=== PATIENT | male | born 1960 | race Caucasian/White ===

== ENCOUNTER 2016-08-11 10:14 | Outpatient (CLI) | payer MEDICARE, OTHER | END 2016-08-11 10:15 | disposition home or self-care (01) | DX: E11.65 Type 2 diabetes mellitus with hyperglycemia (principal) ==

== ENCOUNTER 2016-09-23 13:49 | Day surgery (SDC) | payer MEDICARE, OTHER ==
[2016-09-23] MEDS ORDERED: LACTATED RINGERS 1,000 ML IV ONE (13:59)
[2016-09-23] MEDS ORDERED: MIDAZOLAM 2 MG/2 ML VIAL IVP ONE (16:00)
[2016-09-23] MEDS ORDERED: LIDOCAINE-MPF 2% 5 ML VIAL IM ONE (16:00)
[2016-09-23] MEDS ORDERED: PROPOFOL 200 MG/20 ML VIAL IVP ONE (16:00)
== END 2016-09-23 13:50 | disposition home or self-care (01) ==
PROC: 0D5L8ZZ Destruction of Transverse Colon, Via Natural or Artificial Opening Endoscopic (ICD-10-PCS; 2016-09-23)
PROC: 0DBE8ZX Excision of Large Intestine, Via Natural or Artificial Opening Endoscopic, Diagnostic (ICD-10-PCS; principal; 2016-09-23 15:00)
DX: K62.5 Hemorrhage of anus and rectum (principal); D12.3 Benign neoplasm of transverse colon; D12.6 Benign neoplasm of colon, unspecified; I25.10 Atherosclerotic heart disease of native coronary artery without angina pectoris; F17.290 Nicotine dependence, other tobacco product, uncomplicated; I10 Essential (primary) hypertension; E66.9 Obesity, unspecified; E11.9 Type 2 diabetes mellitus without complications; G89.29 Other chronic pain; M54.9 Dorsalgia, unspecified; Z68.30 Body mass index [BMI] 30.0-30.9, adult; Z79.4 Long term (current) use of insulin; Z79.82 Long term (current) use of aspirin; Z88.0 Allergy status to penicillin; Z95.1 Presence of aortocoronary bypass graft
CPT/HCPCS: 45385; 45388; 88305; J7120

== ENCOUNTER 2016-09-25 13:16 | Outpatient (CLI) | payer MEDICARE, OTHER | END 2016-09-25 13:17 | disposition home or self-care (01) | DX: E11.65 Type 2 diabetes mellitus with hyperglycemia (principal) ==

== ENCOUNTER 2016-11-17 10:34 | Outpatient (CLI) | payer MEDICARE, OTHER | END 2016-11-17 10:35 | disposition home or self-care (01) | DX: E11.65 Type 2 diabetes mellitus with hyperglycemia (principal) ==

== ENCOUNTER 2016-12-30 11:01 | Outpatient (CLI) | payer MEDICARE, OTHER ==
[2016-12-30 20:03] LABS: HEMOGLOBIN A1C 1.28 g/dL
== END 2016-12-30 11:02 | disposition home or self-care (01) ==
LOC: LAB.F 11:01
PROVIDERS: ATTEND Internal Medicine
DX: E11.65 Type 2 diabetes mellitus with hyperglycemia (principal)
CPT/HCPCS: 36415; 83036

== ENCOUNTER 2017-02-18 14:43 | Outpatient (CLI) | payer MEDICARE, OTHER ==
[2017-02-18 18:40] LABS: HEMOGLOBIN A1C 1.25 g/dL
== END 2017-02-18 14:44 | disposition home or self-care (01) ==
LOC: LAB.F 14:43
PROVIDERS: ATTEND Internal Medicine
DX: I25.9 Chronic ischemic heart disease, unspecified (principal); E11.65 Type 2 diabetes mellitus with hyperglycemia; E78.5 Hyperlipidemia, unspecified; M54.5 Low back pain; F33.9 Major depressive disorder, recurrent, unspecified; F17.200 Nicotine dependence, unspecified, uncomplicated; I10 Essential (primary) hypertension
CPT/HCPCS: 36415; 83036

== ENCOUNTER 2017-04-09 08:08 | Outpatient (CLI) | payer MEDICARE, OTHER ==
[2017-04-09 12:00] LABS: BUN - BLOOD UREA NITROGEN 21 mg/dL (6-20); CALCIUM 9.4 mg/dL (8.5-10.3); CARBON DIOXIDE - CO2 22 mmol/L (21-32); CHLORIDE 105 mmol/L (101-111); CHOL/HDL RATIO 4.1 (<5.0); CHOLESTEROL 161 mg/dL; CREATININE 0.8 mg/dL (0.6-1.2); GFR - MDRD 99 (>89); GLUCOSE 204 mg/dL (70-100); HDL CHOLESTEROL 39 mg/dL; LDL/HDL RATIO 2.4 (<3.6); POTASSIUM 4.4 mmol/L (3.5-5.0); SODIUM 138 mmol/L (135-145); TRIGLYCERIDES 136 mg/dL; VLDL CHOLESTEROL 27 mg/dL
[2017-04-09 12:03] LABS: HEMOGLOBIN A1C 1.52 g/dL
== END 2017-04-09 08:09 | disposition home or self-care (01) ==
LOC: LAB.F 08:08
PROVIDERS: ATTEND Internal Medicine
DX: E11.65 Type 2 diabetes mellitus with hyperglycemia (principal); I25.9 Chronic ischemic heart disease, unspecified; E78.5 Hyperlipidemia, unspecified; M54.5 Low back pain; F33.9 Major depressive disorder, recurrent, unspecified; F17.200 Nicotine dependence, unspecified, uncomplicated; I10 Essential (primary) hypertension
CPT/HCPCS: 36415; 80048; 80061; 82043; 82570; 83036

== ENCOUNTER 2017-08-03 11:14 | Outpatient (CLI) | payer MEDICARE, OTHER ==
[2017-08-03 19:56] LABS: HB2 TOTAL 18.5 g/dL; HEMOGLOBIN A1C 1.21 g/dL; HEMOGLOBIN A1C % 8.1 % (4.6-6.2)
== END 2017-08-03 11:15 | disposition home or self-care (01) ==
LOC: LAB.F 11:14
PROVIDERS: ATTEND Internal Medicine
DX: E11.65 Type 2 diabetes mellitus with hyperglycemia (principal)
CPT/HCPCS: 36415; 83036

== ENCOUNTER 2017-11-16 12:28 | Outpatient (CLI) | payer MEDICARE, OTHER ==
[2017-11-16 19:25] LABS: HB2 TOTAL 18.6 g/dL; HEMOGLOBIN A1C 1.17 g/dL; HEMOGLOBIN A1C % 7.9 % (4.6-6.2)
== END 2017-11-16 12:29 | disposition home or self-care (01) ==
LOC: LAB.F 12:28
PROVIDERS: ATTEND Internal Medicine
DX: E11.65 Type 2 diabetes mellitus with hyperglycemia (principal)
CPT/HCPCS: 36415; 83036

== ENCOUNTER 2018-01-11 13:05 | Outpatient (CLI) | payer MEDICARE, OTHER ==
[2018-01-11 18:47] LABS: HEMOGLOBIN A1C 1.13 g/dL; HEMOGLOBIN A1C % 7.6 % (4.6-6.2)
== END 2018-01-11 13:06 | disposition home or self-care (01) ==
LOC: LAB.F 13:05
PROVIDERS: ATTEND Internal Medicine
DX: I25.9 Chronic ischemic heart disease, unspecified (principal); E11.65 Type 2 diabetes mellitus with hyperglycemia; E78.5 Hyperlipidemia, unspecified; M54.5 Low back pain; F17.200 Nicotine dependence, unspecified, uncomplicated; I10 Essential (primary) hypertension
CPT/HCPCS: 36415; 83036

== ENCOUNTER 2018-03-30 08:33 | Outpatient (CLI) | payer MEDICARE, OTHER ==
[2018-03-30 09:12] LABS: CREATININE,URINE 144.5 mg/dL; MICROALBUMIN,URINE 5.2 mg/dL (0-300.0)
[2018-03-30 09:19] LABS: BUN - BLOOD UREA NITROGEN 19 mg/dL (6-20); CALCIUM 9.1 mg/dL (8.5-10.3); CARBON DIOXIDE - CO2 25 mmol/L (21-32); CHLORIDE 102 mmol/L (101-111); CHOL/HDL RATIO 3.5 (<5.0); CHOLESTEROL 173 mg/dL; CREATININE 0.9 mg/dL (0.6-1.2); GFR - MDRD 86 (>89); GLUCOSE 159 mg/dL (70-100); HDL CHOLESTEROL 50 mg/dL; LDL CHOLESTEROL,CALCULATED 98 mg/dL; SODIUM 135 mmol/L (135-145); VLDL CHOLESTEROL 25 mg/dL
[2018-03-30 13:01] LABS: HEMOGLOBIN A1C 1.08 g/dL; HEMOGLOBIN A1C % 7.6 % (4.6-6.2)
== END 2018-03-30 08:34 | disposition home or self-care (01) ==
LOC: LAB 08:33
PROVIDERS: ATTEND Internal Medicine
DX: Z00.00 Encounter for general adult medical examination without abnormal findings (principal); E11.65 Type 2 diabetes mellitus with hyperglycemia; I10 Essential (primary) hypertension; I25.9 Chronic ischemic heart disease, unspecified; E78.5 Hyperlipidemia, unspecified; M54.5 Low back pain; F33.9 Major depressive disorder, recurrent, unspecified; F17.200 Nicotine dependence, unspecified, uncomplicated
CPT/HCPCS: 36415; 80048; 80061; 82043; 82570; 83036; 83721; 86704

== ENCOUNTER 2018-04-25 07:13 | Outpatient (CLI) | payer MEDICARE, OTHER ==
--- NOTE | 2018-04-25 14:00 | CT Report ---
Reason: TOBACCO DEPENDENCE Procedure Date: 04/25/2018 Accession Number: [id number] / [id number] Procedure: CT - Chest/Lung Screen Low Dose W/O CPT Code: FULL RESULT: EXAM CT LUNG SCREEN EXAM DATE: 04/25/2018 07:34 AM. HISTORY: 58-year-old patient with [id number] smoking history. Currently smoking: Yes. COMPARISON: None. TECHNIQUE: CT examination of the entire thorax without contrast was performed using low-dose technique. Thin section coronal, axial, sagittal and MIP axial images were obtained. In accordance with CT protocol optimization, one or more of the following dose reduction techniques were utilized for this exam: automated exposure control, adjustment of mA and/or KV based on patient size, or use of iterative reconstructive technique. FINDINGS: Nodules: Right upper lobe: None. Right middle lobe: None. Right lower lobe: None. Left upper lobe: None. Left lower lobe: None. Emphysema: None. Pleura: Right posterior inferior pleural thickening and pleural calcifications are present. Aorta: No aneurysm. Calcified plaque is seen in the thoracic aorta. Mediastinum: Changes are seen from median sternotomy and bypass surgery. Heart size is normal. Trace pericardial effusion. Coronary calcifications: Marked coronary artery calcified plaque. No enlarged mediastinal or hilar lymph nodes. Other pulmonary findings: Right lower lobe parenchymal scarring and volume loss. No endobronchial obstruction. No pleural effusions or pneumothorax. Other extrapulmonary findings: Included portions of the liver, gallbladder, adrenals, spleen, pancreas and kidneys are unremarkable. Stomach, included portions of the small bowel and colon are unremarkable. Degenerative changes of the thoracic spine. Epidural leads are seen entering posteriorly with a generator present projected over the left posterior upper quadrant. No acute osseous abnormalities. IMPRESSION: Lung-RADS ASSESSMENT CATEGORY: 1 - negative. Probability of malignancy: Less than 1%. RECOMMENDATION: Continued annual screening with low dose CT in 12 months recommended. RADIA
== END 2018-04-25 07:14 | disposition home or self-care (01) ==
LOC: DI 07:13
PROVIDERS: ATTEND Internal Medicine
DX: F17.210 Nicotine dependence, cigarettes, uncomplicated (principal)

== ENCOUNTER 2018-06-28 13:04 | Outpatient (CLI) | payer MEDICARE, OTHER ==
[2018-06-28 13:42] LABS: HB2 TOTAL 19.1 g/dL; HEMOGLOBIN A1C 1.31 g/dL; HEMOGLOBIN A1C % 8.4 % (4.6-6.2)
[2018-06-29 13:46] LABS: HEPATITIS C ANTIBODY NON-REACTIVE (NON-REACTIVE)
== END 2018-06-28 13:05 | disposition home or self-care (01) ==
LOC: LAB 13:04
PROVIDERS: ATTEND Internal Medicine
DX: Z00.00 Encounter for general adult medical examination without abnormal findings (principal); E11.65 Type 2 diabetes mellitus with hyperglycemia; I25.9 Chronic ischemic heart disease, unspecified; E78.5 Hyperlipidemia, unspecified; M54.5 Low back pain; F33.9 Major depressive disorder, recurrent, unspecified; F17.200 Nicotine dependence, unspecified, uncomplicated; F17.290 Nicotine dependence, other tobacco product, uncomplicated; I10 Essential (primary) hypertension
CPT/HCPCS: 36415; 83036; 86803

== ENCOUNTER 2018-10-05 08:00 | Outpatient (CLI) | payer MEDICARE, OTHER ==
[2018-10-05 18:50] LABS: HB2 TOTAL 17.7 g/dL; HEMOGLOBIN A1C 1.17 g/dL; HEMOGLOBIN A1C % 8.2 % (4.6-6.2)
== END 2018-10-05 23:59 | disposition home or self-care (01) ==
LOC: LAB.F 08:00
PROVIDERS: ATTEND Internal Medicine
DX: E11.9 Type 2 diabetes mellitus without complications (principal)
CPT/HCPCS: 36415; 83036

== ENCOUNTER 2019-01-03 11:35 | Outpatient (CLI) | payer MEDICARE, OTHER ==
[2019-01-03 12:45] LABS: HB2 TOTAL 17.8 g/dL; HEMOGLOBIN A1C 1.21 g/dL; HEMOGLOBIN A1C % 8.4 % (4.6-6.2)
== END 2019-01-03 11:36 | disposition home or self-care (01) ==
LOC: LAB 11:35
PROVIDERS: ATTEND Internal Medicine
DX: E11.65 Type 2 diabetes mellitus with hyperglycemia (principal); I25.9 Chronic ischemic heart disease, unspecified; E78.5 Hyperlipidemia, unspecified; M54.5 Low back pain; F33.9 Major depressive disorder, recurrent, unspecified; F17.200 Nicotine dependence, unspecified, uncomplicated; I10 Essential (primary) hypertension
CPT/HCPCS: 36415; 83036

== ENCOUNTER 2019-03-29 08:43 | Outpatient (CLI) | payer MEDICARE, OTHER ==
[2019-03-29 09:20] LABS: BUN - BLOOD UREA NITROGEN 24 mg/dL (6-20); CALCIUM 9.6 mg/dL (8.5-10.3); CARBON DIOXIDE - CO2 21 mmol/L (21-32); CHLORIDE 105 mmol/L (101-111); CHOL/HDL RATIO 3.7 (<5.0); CHOLESTEROL 162 mg/dL; GFR - MDRD 76 (>89); GLUCOSE 205 mg/dL (70-100); HDL CHOLESTEROL 44 mg/dL; LDL CHOLESTEROL,CALCULATED 90 mg/dL; SODIUM 137 mmol/L (135-145); VLDL CHOLESTEROL 28 mg/dL
[2019-03-29 09:21] LABS: CREATININE,URINE 276.1 mg/dL; MICROALBUM/CREATININE RATIO,UR 44.2 ug/mg (<30.0); MICROALBUMIN,URINE 12.2 mg/dL (0-300.0)
[2019-03-29 09:27] LABS: HB2 TOTAL 17.6 g/dL; HEMOGLOBIN A1C 1.26 g/dL; HEMOGLOBIN A1C % 8.7 % (4.6-6.2)
== END 2019-03-29 08:44 | disposition home or self-care (01) ==
LOC: LAB 08:43
PROVIDERS: ATTEND Internal Medicine
DX: I10 Essential (primary) hypertension (principal); E78.5 Hyperlipidemia, unspecified; E11.9 Type 2 diabetes mellitus without complications; I25.9 Chronic ischemic heart disease, unspecified
CPT/HCPCS: 36415; 80048; 80061; 82043; 82570; 83036; 83721

== ENCOUNTER 2019-04-25 09:04 | Outpatient (CLI) | payer MEDICARE, OTHER | END 2019-04-25 09:05 | disposition home or self-care (01) | LOC: DI 09:04 | PROVIDERS: ATTEND Internal Medicine | DX: Z12.2 Encounter for screening for malignant neoplasm of respiratory organs (principal); F17.210 Nicotine dependence, cigarettes, uncomplicated ==

== ENCOUNTER 2019-06-05 10:18 | Outpatient (CLI) | payer MEDICARE, OTHER ==
[2019-06-05 11:31] LABS: HB2 TOTAL 16.5 g/dL; HEMOGLOBIN A1C 1.03 g/dL; HEMOGLOBIN A1C % 7.9 % (4.6-6.2)
== END 2019-06-05 10:19 | disposition home or self-care (01) ==
LOC: LAB 10:18
PROVIDERS: ATTEND Internal Medicine
DX: Z00.00 Encounter for general adult medical examination without abnormal findings (principal); I25.9 Chronic ischemic heart disease, unspecified; E78.5 Hyperlipidemia, unspecified; M54.5 Low back pain; F33.9 Major depressive disorder, recurrent, unspecified; F17.290 Nicotine dependence, other tobacco product, uncomplicated; E11.65 Type 2 diabetes mellitus with hyperglycemia; I10 Essential (primary) hypertension
CPT/HCPCS: 36415; 83036

== ENCOUNTER 2019-08-29 13:26 | Outpatient (CLI) | payer MEDICARE, OTHER ==
[2019-08-29 14:21] LABS: HB2 TOTAL 17.4 g/dL; HEMOGLOBIN A1C 1.29 g/dL; HEMOGLOBIN A1C % 8.9 % (4.6-6.2)
== END 2019-08-29 13:27 | disposition home or self-care (01) ==
LOC: LAB 13:26
PROVIDERS: ATTEND Internal Medicine
DX: I25.9 Chronic ischemic heart disease, unspecified (principal); I10 Essential (primary) hypertension; E78.5 Hyperlipidemia, unspecified; M54.5 Low back pain; F33.9 Major depressive disorder, recurrent, unspecified; E11.21 Type 2 diabetes mellitus with diabetic nephropathy; F17.290 Nicotine dependence, other tobacco product, uncomplicated; E11.65 Type 2 diabetes mellitus with hyperglycemia
CPT/HCPCS: 36415; 83036

== ENCOUNTER 2019-11-23 13:02 | Outpatient (CLI) | payer MEDICARE, OTHER ==
[2019-11-23 13:56] LABS: HB2 TOTAL 17.2 g/dL; HEMOGLOBIN A1C 1.17 g/dL; HEMOGLOBIN A1C % 8.4 % (4.6-6.2)
== END 2019-11-23 13:03 | disposition home or self-care (01) ==
LOC: LAB 13:02
PROVIDERS: ATTEND Internal Medicine
DX: I25.9 Chronic ischemic heart disease, unspecified (principal); E78.5 Hyperlipidemia, unspecified; M54.5 Low back pain; F33.9 Major depressive disorder, recurrent, unspecified; E11.21 Type 2 diabetes mellitus with diabetic nephropathy; F17.290 Nicotine dependence, other tobacco product, uncomplicated; E11.65 Type 2 diabetes mellitus with hyperglycemia; I10 Essential (primary) hypertension
CPT/HCPCS: 36415; 83036

== ENCOUNTER 2020-03-04 10:03 | Outpatient (CLI) | payer MEDICARE, OTHER ==
[2020-03-04 10:47] LABS: HB2 TOTAL 18.5 g/dL; HEMOGLOBIN A1C 1.1 g/dL; HEMOGLOBIN A1C % 7.6 % (4.6-6.2)
== END 2020-03-04 10:04 | disposition home or self-care (01) ==
LOC: LAB 10:03
PROVIDERS: ATTEND Internal Medicine
DX: I25.9 Chronic ischemic heart disease, unspecified (principal); E78.5 Hyperlipidemia, unspecified; M54.5 Low back pain; F33.9 Major depressive disorder, recurrent, unspecified; E11.21 Type 2 diabetes mellitus with diabetic nephropathy; F17.290 Nicotine dependence, other tobacco product, uncomplicated; E11.65 Type 2 diabetes mellitus with hyperglycemia; I10 Essential (primary) hypertension
CPT/HCPCS: 36415; 83036

== ENCOUNTER 2020-04-16 08:49 | Outpatient (CLI) | payer MEDICARE, OTHER ==
[2020-04-16 09:46] LABS: BUN - BLOOD UREA NITROGEN 20 mg/dL (6-20); CALCIUM 9.7 mg/dL (8.5-10.3); CARBON DIOXIDE - CO2 25 mmol/L (21-32); CHLORIDE 103 mmol/L (101-111); CHOL/HDL RATIO 3.3 (<5.0); CHOLESTEROL 169 mg/dL; GLUCOSE 190 mg/dL (70-100); HDL CHOLESTEROL 51 mg/dL; LDL CHOLESTEROL,CALCULATED 91 mg/dL; LDL/HDL RATIO 1.8 (<3.6); SODIUM 137 mmol/L (135-145); VLDL CHOLESTEROL 27 mg/dL
[2020-04-16 11:00] LABS: CREATININE,URINE 223.2 mg/dL; MICROALBUM/CREATININE RATIO,UR 42.1 ug/mg (<30.0); MICROALBUMIN,URINE 9.4 mg/dL (0-300.0)
== END 2020-04-16 08:50 | disposition home or self-care (01) ==
LOC: LAB 08:49
PROVIDERS: ATTEND Internal Medicine
DX: I10 Essential (primary) hypertension (principal); I25.9 Chronic ischemic heart disease, unspecified; E78.5 Hyperlipidemia, unspecified; M54.5 Low back pain; F33.9 Major depressive disorder, recurrent, unspecified; E11.65 Type 2 diabetes mellitus with hyperglycemia; E11.21 Type 2 diabetes mellitus with diabetic nephropathy; F17.290 Nicotine dependence, other tobacco product, uncomplicated
CPT/HCPCS: 36415; 80048; 80061; 82043; 82570; 83721

== ENCOUNTER 2020-05-06 09:42 | Outpatient (CLI) | payer MEDICARE, OTHER ==
--- NOTE | 2020-05-06 16:18 | CT Report ---
PROCEDURE: Low Dose Lung Cancer Screen INDICATIONS: SMOKER TECHNIQUE: Noncontrast low-dose 5 mm thick sections acquired from the pulmonary apices to the posterior costophr enic angles. 7 mm thick coronal and sagittal MIP reformats were then acquired. For radiation dose r eduction, the following was used: automated exposure control, adjustment of mA and/or kV according t o patient size. COMPARISON: 04/25/2019, 04/25/2018 FINDINGS: Image quality: Excellent. Lungs and pleura: There is a stable punctate calcification in the subpleural anterior right upper lo be (4/16). No other lung nodules. Linear subpleural scarring is present in the posterior right lower lobe. Coarse scattered pleural thickening and calcification along the posterior right lower lobe with out effusion. Airways are patent and of normal caliber. Mediastinum: Heart size is normal. Heavy coronary artery calcification. There are CABG changes. No p ericardial effusion. No mediastinal adenopathy by size criteria. Thoracic aorta and central pulmona ry arteries are normal in size. Esophagus is normal in caliber. No hiatal hernia. Bones and chest wall: Median sternotomy wires present. No suspicious bony lesions. No vertebral bod y compression fractures. No axillary or supraclavicular adenopathy by size criteria. The thyroid is normal in size. Epidural neurostimulator power pack in the left flank subcutaneous tissues and ente ring in the midthoracic spine. Abdomen: Visualized upper abdomen solid organs and bowel loops appear normal in the absence of contr ast. Splenic artery calcification also noted. IMPRESSION: 1. No suspicious nodules. 2. Stable partially calcified right posterior pleural plaque. 3. Heavy coronary artery calcification and post-CABG changes. 4. Lung RADS category 1, negative. Annual follow-up low-dose chest CT as long as the patient meets cr iteria. Reviewed by: Sadaf Mcclure MD on 05/06/2020 10:35 AM PDT Approved by: Sadaf Mcclure MD on 05/06/2020 10:35 AM PDT Station ID: [id number]
== END 2020-05-06 09:43 | disposition home or self-care (01) ==
LOC: DI 09:42
PROVIDERS: ATTEND Internal Medicine
DX: Z12.2 Encounter for screening for malignant neoplasm of respiratory organs (principal); F17.210 Nicotine dependence, cigarettes, uncomplicated; J92.9 Pleural plaque without asbestos; I25.810 Atherosclerosis of coronary artery bypass graft(s) without angina pectoris
CPT/HCPCS: G0297 ×2

== ENCOUNTER 2020-07-30 15:32 | Outpatient (CLI) | payer MEDICARE, OTHER ==
[2020-07-30 20:32] LABS: HEMOGLOBIN A1c% 8.7 % (4.27-6.07)
== END 2020-07-30 15:33 | disposition home or self-care (01) ==
LOC: LAB 15:32
PROVIDERS: ATTEND Internal Medicine
DX: E11.9 Type 2 diabetes mellitus without complications (principal)
CPT/HCPCS: 36415; 83036

== ENCOUNTER 2020-09-19 09:51 | Outpatient (CLI) | payer MEDICARE, OTHER ==
[2020-09-19 12:33] LABS: HEMOGLOBIN A1c% 8.2 % (4.27-6.07)
== END 2020-09-19 09:52 | disposition home or self-care (01) ==
LOC: LAB 09:51
PROVIDERS: ATTEND Internal Medicine
DX: E11.9 Type 2 diabetes mellitus without complications (principal)
CPT/HCPCS: 36415; 83036

== ENCOUNTER 2020-12-31 15:29 | Outpatient (CLI) | payer MEDICARE, OTHER ==
[2020-12-31 20:18] LABS: ESTIMATED AVERAGE GLUCOSE 177 mg/dL (70-100); HEMOGLOBIN A1c% 7.8 % (4.27-6.07)
== END 2020-12-31 15:30 | disposition home or self-care (01) ==
LOC: LAB 15:29
PROVIDERS: ATTEND Internal Medicine
DX: E11.65 Type 2 diabetes mellitus with hyperglycemia (principal)
CPT/HCPCS: 36415; 83036

== ENCOUNTER 2021-03-04 08:00 | Outpatient (CLI) | payer MEDICARE, OTHER ==
[2021-03-04 15:55] LABS: ESTIMATED AVERAGE GLUCOSE 169 mg/dL (70-100); HEMOGLOBIN A1c% 7.5 % (4.27-6.07)
== END 2021-03-04 23:59 | disposition home or self-care (01) ==
LOC: LAB 08:00
PROVIDERS: ATTEND Internal Medicine
DX: E11.9 Type 2 diabetes mellitus without complications (principal)
CPT/HCPCS: 36415; 83036

== ENCOUNTER 2021-04-03 09:27 | Outpatient (CLI) | payer MEDICARE, OTHER ==
[2021-04-03 10:18] LABS: CREATININE,URINE 235.9 mg/dL; MICROALBUM/CREATININE RATIO,UR 33.5 ug/mg (<30.0); MICROALBUMIN,URINE 7.9 mg/dL (0-300.0)
[2021-04-03 10:23] LABS: BUN - BLOOD UREA NITROGEN 20 mg/dL (6-20); CALCIUM 9.4 mg/dL (8.5-10.3); CARBON DIOXIDE - CO2 22 mmol/L (21-32); CHLORIDE 103 mmol/L (101-111); CHOL/HDL RATIO 3.4 (<5.0); CHOLESTEROL 159 mg/dL; GFR - MDRD 75 (>89); GLUCOSE 182 mg/dL (70-100); HDL CHOLESTEROL 47 mg/dL; LDL CHOLESTEROL,CALCULATED 93 mg/dL; POTASSIUM 4.3 mmol/L (3.5-5.0); SODIUM 136 mmol/L (135-145); TRIGLYCERIDES 94 mg/dL; VLDL CHOLESTEROL 19 mg/dL
[2021-04-03 10:39] LABS: ESTIMATED AVERAGE GLUCOSE 174 mg/dL (70-100); HEMOGLOBIN A1c% 7.7 % (4.27-6.07)
== END 2021-04-03 09:28 | disposition home or self-care (01) ==
LOC: LAB 09:27
PROVIDERS: ATTEND Internal Medicine
DX: I25.9 Chronic ischemic heart disease, unspecified (principal); E78.5 Hyperlipidemia, unspecified; E11.65 Type 2 diabetes mellitus with hyperglycemia; M54.5 Low back pain; F33.9 Major depressive disorder, recurrent, unspecified; E11.21 Type 2 diabetes mellitus with diabetic nephropathy; I10 Essential (primary) hypertension
CPT/HCPCS: 36415; 80048; 80061; 82043; 82570; 83036; 83721

== ENCOUNTER 2021-05-01 09:06 | Outpatient (CLI) | payer MEDICARE, OTHER ==
--- NOTE | 2021-05-01 09:49 | CT Report ---
PROCEDURE: Low Dose Lung Cancer Screen INDICATIONS: CURRENT SMOKER TECHNIQUE: Noncontrast low-dose images were acquired from the pulmonary apices to the posterior costophrenic ang les. Multiplanar MIP reformats were then acquired. For radiation dose reduction, the following was used: automated exposure control, adjustment of mA and/or kV according to patient size. COMPARISON: CT lung cancer screening at 05/06/2020, 04/25/2018. FINDINGS: Image quality: Excellent. Lungs and pleura: Minimal thickening at the left major fissure is unchanged since 2018. Calcified gr anuloma in the right upper lobe. Mild emphysematous change. The airways are clear. No pleural effusio n. Calcified plaque at the right lung base, (3/43). No pneumothorax. Mediastinum: Post CABG. Heart size is normal. No pericardial effusion. No mediastinal adenopathy b y size criteria. Thoracic aorta and central pulmonary arteries are normal in size. Esophagus is nor mal in caliber. No hiatal hernia. Bones and chest wall: No suspicious bony lesions. No vertebral body compression fractures. No axil hunter or supraclavicular adenopathy by size criteria. The thyroid is normal in size and there are no incidental findings. Left back stimulator device with thecal leads. Abdomen: Visualized upper abdomen solid organs and bowel loops appear normal in the absence of contr ast. IMPRESSION: 1. No significant pulmonary nodules. Small calcified granuloma. Lung RADS-2. Recommend follow-up CT lung cancer screening in 12 months. 2. Post CABG. 3. Calcified plaque at the right lung base. This is most indicative of prior asbestos exposure. Reviewed by: Aj Muniz MD on 05/01/2021 9:48 AM PDT Approved by: Aj Muniz MD on 05/01/2021 9:48 AM PDT Station ID: [id number]
== END 2021-05-01 09:07 | disposition home or self-care (01) ==
LOC: DI 09:06
PROVIDERS: ATTEND Internal Medicine
DX: Z12.2 Encounter for screening for malignant neoplasm of respiratory organs (principal); F17.210 Nicotine dependence, cigarettes, uncomplicated; R91.8 Other nonspecific abnormal finding of lung field; Z95.1 Presence of aortocoronary bypass graft; Z77.090 Contact with and (suspected) exposure to asbestos

== ENCOUNTER 2021-08-15 10:11 | Outpatient (CLI) | payer MEDICARE, OTHER ==
[2021-08-15 11:33] LABS: ESTIMATED AVERAGE GLUCOSE 192 mg/dL (70-100); HEMOGLOBIN A1c% 8.3 % (4.27-6.07)
== END 2021-08-15 10:12 | disposition home or self-care (01) ==
LOC: LAB 10:11
PROVIDERS: ATTEND Internal Medicine
DX: E11.65 Type 2 diabetes mellitus with hyperglycemia (principal)
CPT/HCPCS: 36415; 83036

== ENCOUNTER 2021-09-26 08:34 | Outpatient (CLI) | payer MEDICARE, OTHER ==
[2021-09-26 11:27] LABS: ESTIMATED AVERAGE GLUCOSE 192 mg/dL (70-100); HEMOGLOBIN A1c% 8.3 % (4.27-6.07)
== END 2021-09-26 08:35 | disposition home or self-care (01) ==
LOC: LAB 08:34
PROVIDERS: ATTEND Internal Medicine
DX: E11.9 Type 2 diabetes mellitus without complications (principal)
CPT/HCPCS: 36415; 83036

== ENCOUNTER 2021-11-14 08:06 | Outpatient (CLI) | payer MEDICARE, OTHER ==
[2021-11-14 15:47] LABS: ESTIMATED AVERAGE GLUCOSE 192 mg/dL (70-100); HEMOGLOBIN A1c% 8.3 % (4.27-6.07)
== END 2021-11-14 08:07 | disposition home or self-care (01) ==
LOC: LAB 08:06
PROVIDERS: ATTEND Internal Medicine
DX: E11.9 Type 2 diabetes mellitus without complications (principal)
CPT/HCPCS: 36415; 81599; 83036

== ENCOUNTER 2022-01-02 08:13 | Outpatient (CLI) | payer MEDICARE, OTHER ==
[2022-01-02 09:33] LABS: ESTIMATED AVERAGE GLUCOSE 174 mg/dL (70-100); HEMOGLOBIN A1c% 7.7 % (4.27-6.07)
== END 2022-01-02 08:14 | disposition home or self-care (01) ==
LOC: LAB 08:13
PROVIDERS: ATTEND Internal Medicine
DX: E11.9 Type 2 diabetes mellitus without complications (principal)
CPT/HCPCS: 36415; 83036

== ENCOUNTER 2022-03-18 09:13 | Emergency (ER) | payer MEDICARE, OTHER ==
[2022-03-18 09:21] VITALS: BP 150/99
--- NOTE | 2022-03-18 10:22 | ED Physician Documentation ---
PD HPI OPHTHO - Stated complaint Stated Complaint: L EYE SWELLING - Chief complaint Chief Complaint: Heent - History obtained from History obtained from: Patient - Additional information Additional information: PT comes to the ED with CC of lesions on his L lower eyelid for the past 2 days. He thinks he may have gotten something in his eye that started it off, but no longer has a FB sensation. He denies fever, swelling or drainage. No contact lens use. Review of Systems Ten Systems: 10 systems reviewed and negative Constitutional: reports: Reviewed and negative Eyes: reports: Other (eyelid lesions) Ears: reports: Reviewed and negative Nose: reports: Reviewed and negative Throat: reports: Reviewed and negative Cardiac: reports: Reviewed and negative Respiratory: reports: Reviewed and negative GI: reports: Reviewed and negative : reports: Reviewed and negative Skin: reports: Reviewed and negative Musculoskeletal: reports: Reviewed and negative Neurologic: reports: Reviewed and negative Psychiatric: reports: Reviewed and negative Endocrine: reports: Reviewed and negative Immunocompromised: reports: Reviewed and negative PD PAST MEDICAL HISTORY - Past Medical History Cardiovascular: Hypertension, High cholesterol Respiratory: Other Endocrine/Autoimmune: Type 2 diabetes GI: None : None HEENT: None Psych: Depression Musculoskeletal: Chronic back pain, Other Derm: None - Past Surgical History General: Colonoscopy Ortho: Spine surgery Cardiovascular: CABG HEENT: Tonsil/Adenoidectomy - Present Medications Home Medications: Ambulatory Orders Medication Instructions Recorded Confirmed Aspirin [Adult Low Dose Aspirin EC] 81 mg ORAL DAILY 09/22/16 09/22/16 Atorvastatin Calcium 80 mg ORAL DAILY 09/22/16 09/22/16 Insulin NPH Human Isophane 50 units SQ BID 09/22/16 09/23/16 [Humulin N] Insulin Regular, Human [Humulin R] PRN 09/22/16 Metoprolol Succinate 25 mg ORAL BID 09/22/16 09/22/16 Sertraline [Zoloft] 100 mg ORAL DAILY 09/22/16 09/22/16 lisinopriL [Lisinopril] 2.5 mg ORAL DAILY 09/22/16 09/23/16 metFORMIN [Glucophage] 500 mg ORAL BID 09/22/16 09/23/16 oxyCODONE [Roxicodone] 7.5 mg ORAL BID PRN 09/22/16 09/22/16 Gentamicin 0.3% Ophth Drops 1 drops OPTH BID #5 ml 03/18/22 [Garamycin] - Allergies Allergies/Adverse Reactions: Allergies Allergy/AdvReac Type Severity Reaction Status Date / Time dipyridamole Allergy Hives Verified 03/18/22 09:21 [From Persantine] glyburide Allergy Rash Verified 03/18/22 09:21 Penicillins Allergy Rash Verified 03/18/22 09:21 PD ED PE NORMAL - Vitals Vital signs reviewed: Yes - General General: Alert and oriented X 3, No acute distress, Well developed/nourished - HEENT HEENT: Atraumatic, PERRL, EOMI, Moist mucous membranes, Other (1 small pustule and 1 small vesicle on edge of medial L lower eyelid. No erythema, induration, or drainage. Minimal surrounding edema. No conjunctival injection. No FB or corneal abrasion on fluorscein exam.) - Cardiac Cardiac: RRR, No murmur - Respiratory Respiratory: Clear bilaterally - Abdomen Abdomen: Normal bowel sounds, Soft, Non tender, Non distended - Derm Derm: Warm and dry - Extremities Extremities: No deformity - Neuro Neuro: Alert and oriented X 3 - Psych Psych: Normal mood, Normal affect Results - Vitals Vitals: Oxygen O2 Source Room air PD MEDICAL DECISION MAKING - ED course Complexity details: considered differential, d/w patient ED course: I d/w pt that he has very localized findings, and most likely, once the pustule and vesicle drain, they will resolve. I have prescribed gentamicin ophthalmic drops and recommended hot compresses. We have discussed the usual indications for follow-up and return. Departure - Departure Disposition: 01 Home, Self Care Clinical Impression: Meibomianitis of left lower eyelid Condition: Stable Instructions: ED Meibomitis Prescriptions: Gentamicin 0.3% Ophth Drops [Garamycin] 1 drops OPTH BID #5 ml Comments: You appear to have a superficially clogged meibomian gland, one of the glands that produces the oily part of your tears. This is very superficial right now and most likely, will resolve on its own. You can help this process along by applying a hot pack that is is hot as you can stand, to the area for approximately 20 minutes at a time. This will help to encourage the small blister and pustule to pop and drain. Once this happens, the condition will resolve on its own. You may also use the topical antibiotic drops as directed, as well. The prescription for these has been electronically transmitted to the [facility]. Please follow-up with gum puller if the symptoms have not resolved within the next week. Do not use any contact lenses or other eye products until your eyelid is doing better. Discharge Date/Time: 03/18/22 10:33
== END 2022-03-18 10:33 | disposition home or self-care (01) ==
LOC: ED 09:13
DX: H00.025 Hordeolum internum left lower eyelid (principal); I10 Essential (primary) hypertension; E11.9 Type 2 diabetes mellitus without complications; Z79.4 Long term (current) use of insulin
CPT/HCPCS: 99282; 99283

== ENCOUNTER 2022-03-25 12:01 | Outpatient (CLI) | payer MEDICARE, OTHER ==
[2022-03-25 12:21] LABS: CREATININE,URINE 233.9 mg/dL; MICROALBUM/CREATININE RATIO,UR 36.3 ug/mg (<30.0); MICROALBUMIN,URINE 8.5 mg/dL (0-300.0)
[2022-03-25 12:28] LABS: BUN - BLOOD UREA NITROGEN 22 mg/dL (6-20); CALCIUM 9.8 mg/dL (8.5-10.3); CARBON DIOXIDE - CO2 23 mmol/L (21-32); CHLORIDE 104 mmol/L (101-111); CHOL/HDL RATIO 3.3 (<5.0); CHOLESTEROL 150 mg/dL; CREATININE 0.8 mg/dL (0.6-1.2); GFR - MDRD 97 (>89); GLUCOSE 117 mg/dL (70-100); HDL CHOLESTEROL 45 mg/dL; LDL CHOLESTEROL,CALCULATED 84 mg/dL; LDL/HDL RATIO 1.9 (<3.6); POTASSIUM 4.1 mmol/L (3.5-5.0); SODIUM 135 mmol/L (135-145); TRIGLYCERIDES 106 mg/dL; VLDL CHOLESTEROL 21 mg/dL
[2022-03-25 14:30] LABS: ESTIMATED AVERAGE GLUCOSE 177 mg/dL (70-100); HEMOGLOBIN A1c% 7.8 % (4.27-6.07)
== END 2022-03-25 12:02 | disposition home or self-care (01) ==
LOC: LAB 12:01
PROVIDERS: ATTEND Internal Medicine
DX: I10 Essential (primary) hypertension (principal); E78.5 Hyperlipidemia, unspecified; E11.21 Type 2 diabetes mellitus with diabetic nephropathy
CPT/HCPCS: 36415; 80048; 80061; 82043; 82570; 83036; 83721

== ENCOUNTER 2022-04-27 08:51 | Outpatient (CLI) | payer MEDICARE, OTHER ==
--- NOTE | 2022-04-27 11:50 | CT Report ---
PROCEDURE: Low Dose Lung Cancer Screen INDICATIONS: Lung cancer screening TECHNIQUE: Noncontrast low-dose axial images were acquired from the pulmonary apices to the posterior costophren ic angles. Multiplanar MIP reformats were then reconstructed. For radiation dose reduction, the follo wing was used: automated exposure control, adjustment of mA and/or kV according to patient size. COMPARISON: 05/01/2021 FINDINGS: Image quality: Excellent. Lungs and pleura: No suspicious pulmonary nodule or mass. Calcified pleural plaque in the posterior right lung base is unchanged. Mediastinum: Heart size is normal. No pericardial effusion. No mediastinal adenopathy by size crit eria. Thoracic aorta and central pulmonary arteries are normal in size. Esophagus is normal in rani valeria. No hiatal hernia. Bones and chest wall: No suspicious bony lesions. No vertebral body compression fractures. No axil hunter or supraclavicular adenopathy by size criteria. Abdomen: Visualized upper abdomen solid organs and bowel loops appear normal in the absence of contr ast. IMPRESSION: No suspicious pulmonary nodule or mass. Lung RADS category 1, negative. Annual low-dose screening CT of the chest recommended. Reviewed by: Lamine Trevino MD on 04/27/2022 11:48 AM PDT Approved by: Lamine Trevino MD on 04/27/2022 11:48 AM PDT Station ID: [id number]
== END 2022-04-27 08:52 | disposition home or self-care (01) ==
LOC: DI 08:51
PROVIDERS: ATTEND Internal Medicine
DX: Z12.2 Encounter for screening for malignant neoplasm of respiratory organs (principal); F17.210 Nicotine dependence, cigarettes, uncomplicated

== ENCOUNTER 2022-11-25 15:10 | Outpatient (CLI) | payer MEDICARE, OTHER ==
[2022-11-25 20:47] LABS: ESTIMATED AVERAGE GLUCOSE 186 mg/dL (70-100); HEMOGLOBIN A1c% 8.1 % (4.27-6.07)
== END 2022-11-25 15:11 | disposition home or self-care (01) ==
LOC: LAB 15:10
PROVIDERS: ATTEND Internal Medicine
DX: E11.9 Type 2 diabetes mellitus without complications (principal)
CPT/HCPCS: 36415; 83036

== ENCOUNTER 2023-03-30 14:15 | Outpatient (CLI) | payer MEDICARE, OTHER ==
[2023-03-30 14:46] LABS: CREATININE,URINE 190.8 mg/dL; MICROALBUMIN,URINE 8.4 mg/dL
[2023-03-30 14:47] LABS: CHOL/HDL RATIO 3.1 (<5.0); CHOLESTEROL 150 mg/dL; HDL CHOLESTEROL 49 mg/dL; LDL CHOLESTEROL,CALCULATED 78 mg/dL; LDL/HDL RATIO 1.6 (<3.6); TRIGLYCERIDES 114 mg/dL (48-352); VLDL CHOLESTEROL 23 mg/dL
[2023-03-30 15:11] LABS: BUN - BLOOD UREA NITROGEN 22 mg/dL (6-20); CALCIUM 10.1 mg/dL (8.5-10.3); CARBON DIOXIDE - CO2 24 mmol/L (21-32); CHLORIDE 105 mmol/L (101-111); CREATININE 0.9 mg/dL (0.6-1.3); GFR - MDRD 85 (>89); GLUCOSE 58 mg/dL (74-104); POTASSIUM 3.8 mmol/L (3.5-4.5); SODIUM 136 mmol/L (135-145)
[2023-03-30 20:03] LABS: ESTIMATED AVERAGE GLUCOSE 163 mg/dL (70-100); HEMOGLOBIN A1c% 7.3 % (4.27-6.07)
== END 2023-03-30 14:16 | disposition home or self-care (01) ==
LOC: LAB 14:15
DX: E78.5 Hyperlipidemia, unspecified (principal); E11.65 Type 2 diabetes mellitus with hyperglycemia; I10 Essential (primary) hypertension
CPT/HCPCS: 36415; 80048; 80061; 82043; 82570; 83036; 83721

== ENCOUNTER 2023-06-09 10:44 | Outpatient (CLI) | payer MEDICARE, OTHER ==
--- NOTE | 2023-06-09 13:42 | CT Report ---
PROCEDURE: Low Dose Lung Cancer Screen INDICATIONS: SMOKER TECHNIQUE: A CT scan of the chest was performed. Intravenous contrast media was not administered. Images were re corded and evaluated at appropriate window settings. Reformats: axial MIP of the chest, coronal and s agittal. For radiation dose reduction, the following was used: automated exposure control, adjustment of mA and/or kV according to patient size. COMPARISON: 04/27/2022 FINDINGS: Image quality: Excellent. Prior cancer history: No. Lungs and pleura: No pleural effusions. No pneumothorax. No suspicious pulmonary nodules which requi re follow up. Calcified pleural plaque in the posterior right lung base. Mediastinum: Heart size is normal. No pericardial effusion. No large vessel abnormality. No mediastin al adenopathy by size criteria. Three vessel coronary artery calcifications. Chest wall and lower neck: Thyroid is unremarkable. No axillary or supraclavicular adenopathy by size . Rightward curvature of the thoracic spine. Bones: No aggressive osseous abnormality. Upper Abdomen: Unremarkable. IMPRESSION: Lung RAD: 1 - Negative. Recommendation: Continue annual screening in 12 Months with LDCT Non-Lung Significant Findings: Coronary Arterial Calcification - Moderate or Severe. Right posterior pleural calcifications. Reviewed by: Randy Aguilar on 06/09/2023 1:40 PM PST Approved by: Randy Aguilar on 06/09/2023 1:40 PM PST Station ID: [id number]
== END 2023-06-09 10:45 | disposition home or self-care (01) ==
LOC: DI 10:44
PROVIDERS: ATTEND Internal Medicine
DX: Z12.2 Encounter for screening for malignant neoplasm of respiratory organs (principal); F17.210 Nicotine dependence, cigarettes, uncomplicated; I25.10 Atherosclerotic heart disease of native coronary artery without angina pectoris; J94.8 Other specified pleural conditions

== ENCOUNTER 2023-12-31 08:29 | Outpatient (CLI) | payer MEDICARE, OTHER ==
[2023-12-31 09:12] LABS: ESTIMATED AVERAGE GLUCOSE 180 mg/dL (70-100); HEMOGLOBIN A1c% 7.9 % (4.27-6.07)
== END 2023-12-31 08:30 | disposition home or self-care (01) ==
LOC: LAB 08:29
PROVIDERS: ATTEND Internal Medicine
DX: E11.9 Type 2 diabetes mellitus without complications (principal)
CPT/HCPCS: 36415; 83036

== ENCOUNTER 2024-03-29 09:24 | Outpatient (CLI) | payer MEDICARE, OTHER ==
[2024-03-29 09:52] LABS: BUN - BLOOD UREA NITROGEN 14 mg/dL (6-20); CALCIUM 9.5 mg/dL (8.5-10.3); CARBON DIOXIDE - CO2 30 mmol/L (21-32); CHLORIDE 104 mmol/L (101-111); CHOL/HDL RATIO 2.6 (<5.0); CHOLESTEROL 123 mg/dL; CREATININE 0.9 mg/dL (0.6-1.3); GFR - MDRD 84 (>89); GLUCOSE 112 mg/dL (74-104); HDL CHOLESTEROL 48 mg/dL; LDL CHOLESTEROL,CALCULATED 59 mg/dL; LDL/HDL RATIO 1.2 (<3.6); POTASSIUM 4.3 mmol/L (3.5-4.5); SODIUM 139 mmol/L (135-145); TRIGLYCERIDES 79 mg/dL; VLDL CHOLESTEROL 16 mg/dL
[2024-03-29 09:55] LABS: MICROALBUM/CREATININE RATIO,UR 50.5 ug/mg (<30.0); MICROALBUMIN,URINE 4.8 mg/dL
[2024-03-29 10:05] LABS: ESTIMATED AVERAGE GLUCOSE 192 mg/dL (70-100); HEMOGLOBIN A1c% 8.3 % (4.27-6.07)
== END 2024-03-29 09:25 | disposition home or self-care (01) ==
LOC: LAB 09:24
PROVIDERS: ATTEND Internal Medicine
DX: E11.65 Type 2 diabetes mellitus with hyperglycemia (principal)
CPT/HCPCS: 36415; 80048; 80061; 82043; 82570; 83036; 83721